=== PATIENT | female | born 1980 | race Hispanic/Latino ===

== ENCOUNTER 2025-02-14 19:47 | Emergency (ER) | payer SELFPAY ==
[2025-02-14 19:56] VITALS: BP 152/98
[2025-02-14 20:16] LABS: Hematocrit 37.6 % (37.0-47.0); Hemoglobin 12.8 g/dL (12.0-16.0); Mean Corp Hgb Conc. 34.0 g/dL (33.0-37.0); Mean Corpuscular Volume 91.5 fL (81.0-99.0); Nucleated Red Blood Cells % 0 %; Platelet Count 349 10^3/uL (130-400); Red Cell Dist. Width 13.4 % (11.5-14.5)
[2025-02-14 20:37] VITALS: BP 148/85
[2025-02-14 20:39] LABS: HCG, Serum Qualitative Screen Negative; Troponin I < 0.012 ng/ml
[2025-02-14 20:46] LABS: ALT (SGPT) 28 U/L (0-35); AST (SGOT) 37 U/L (14-36); Albumin 4.6 g/dl (3.5-5.0); Alkaline Phosphatase 107 U/L (38-126); Blood Urea Nitrogen 17 mg/dl (7-17); Calcium 9.4 mg/dl (8.4-10.2); Carbon Dioxide 27 mmol/L (22-30); Chloride 103 mmol/L (98-107); Glucose 113 mg/dl (70-99); Lipase 117 U/L (23-300); Potassium 3.3 mmol/L (3.5-5.1); Sodium 137 mmol/L (135-145); Total Protein 7.9 g/dl (6.3-8.2); eGFR > 60.00
[2025-02-14 21:00] VITALS: BP 154/91
--- NOTE | 2025-02-14 21:03 | ED.GENMED ---
History of Present Illness
General
Chief Complaint: Abdominal Pain
Source: patient
Exam Limitations: none
Time Seen by Provider: 02/14/25 20:23
Nursing documentation reviewed up to this point in time: agreed with
History of Present Illness
History of Present Illness:
Patient is a 44-year-old female with history of hypertension presents to the ER complaining of upper abdominal pain that radiates to her back starting today. She is nauseous but has not vomited. She reports 3 months ago she was seen at [facility] and told she needed her gallbladder removed. She currently does not have a family doctor. She did take Tylenol for pain which is not relieving her symptoms. All history obtained via language line
Past History
Past History
ED Past Medical History: None
ED Past Surgical History: Other (Breast)
Social History
Tobacco: Non-smoker
Alcohol: None
Drug: None
Personal: Single
Living: with family
Phy Exam
General Physical Exam
General Presentation: no apparent distress
General age: appears stated age
General Skin: warm and dry
General Habitus: normal
General Mental: alert
General Hydration: appears well hydrated
Cardiovascular Exam
Cardiovascular Exam: regular rate/rhythm, no murmur and normal peripheral pulses
Pulmonary Exam
Pulmonary Exam: lungs clear and no respiratory distress
Gastrointestinal Exam
Gastrointestinal Exam: soft and other (tender epigastric /ruq region )
Neurological Exam
Neurological Exam: alert and oriented x3
Musculoskeletal Exam
Musculoskeletal Exam: full ROM
Skin Exam
Skin Exam: normal color and warm/dry
Psychiatric Exam
Psychiatric Exam: normal mood/affect
Course
Orders/Labs/Results
Orders:
Orders
02/14/25 19:48
Electrocardiogram (*1) Stat
Reason for Study: Abdominal Pain
02/14/25 19:49
Test Result ONCE
02/14/25 20:06
Complete Blood Count/With Diff Urgent
Comprehensive Metabolic Panel Urgent
HCG, Serum Qualitative Screen Urgent
Comment: Notify provider if positive test present
Lipase Urgent
Troponin I Urgent
02/14/25 21:01
Ketorolac [Toradol] 15 mg IV NOW STA
02/14/25 21:02
0.9% Sodium Chloride 1000 ml [Nss] 1,000 ml IV BOLUS
US Abdomen Complete/Upper Urgent
Comment:
Reason For Exam: ruq pain
Abnormal Lab Results
02/14/25
20:06
RBC 4.11 L 10^6/uL
(4.20-5.40)
MCH 31.1 H pg
(27.0-31.0)
Absolute Lymphs (auto) 4.0 H 10^3/uL
(1.2-3.4)
Potassium 3.3 L mmol/L
(3.5-5.1)
Glucose 113 H mg/dl
(70-99)
AST 37 H U/L
(14-36)
02/14/25 20:06
02/14/25 20:06
Vital Signs
Initial and Last Documented VS:
Initial Vital Signs
Temp Pulse Resp BP Pulse Ox
98.6 F 100 18 152/98 100
02/14/25 19:56 02/14/25 19:56 02/14/25 19:56 02/14/25 19:56 02/14/25 19:56
Last Documented Vital Signs
Temp Pulse Resp BP Pulse Ox
98.6 F 89 18 146/95 97
02/14/25 19:56 02/14/25 23:30 02/14/25 23:30 02/14/25 23:00 02/14/25 23:30
MDM/Problems Addressed
Differential Diagnosis Includes:
Not limited to biliary colic pancreatitis
MDM/Problems Addressed:
Symptoms are likely biliary colic. Patient is afebrile however normal white count normal LFTs. Ultrasound pending at this time.
Patient denies pain presently is well-appearing ultrasound shows a contracted gallbladder gallstones but no findings to suggest acute cholecystitis. Patient was well up to go home with outpatient follow-up with surgery.
*Radiology
Radiology exam reviewed: radiology read reviewed
*Pulse Oximetry
SaO2: 100
Oxygen Mode of Delivery: Room air
Patient hypoxic: no
*Critical Care Note
Total Time (30-74mins, 75-104mins- exclusive of procedures): Not Applicable
ED Attending Note
-
Portions of this chart may have been created with voice recognition software.� Occasional wrong word or��sound alike� substitutions may have occurred due to the inherent limitations of voice recognition software.
Discharge Plan
Departure
Patient Disposition: Home (Routine Discharge)
Date of Disposition: 02/14/25
Time of Disposition: 23:22
Patient with high blood pressure during this ER visit?: Yes
Condition: Fair
Covid-19: Not Applicable
Discharge Problem:
Abdominal pain, Gallstones
Instructions: Gallstones (DC), Abdominal Pain
Prescriptions:
No Action
No Current Medications
0
Referrals:
pancho joseph [Other]
NONE,* [Family Provider, Internal Medicine]
Rosendo Joseph MD [Active, Surgical]
Activity Restrictions/Additional Instructions:
Llame al cirujano ma�omi para pedir tigre cuanto antes. Siga silvia dieta baja en grasas. Vuelva si empeoran los s�ntomas.
Interventions
Interventions:
*Risk Screen - Suicide Last Done: 02/14/25 20:05
*General Assessment Last Done: 02/14/25 20:22
*Neglect/Abuse Screening Last Done: 02/14/25 20:05
*ED- Fall Risk Assessment Last Done: 02/14/25 20:22
*ED COVID-19 Vaccine History Last Done: 02/14/25 20:22
*ED Influenza Vaccine History Last Done: 02/14/25 20:22
*Nursing Disposition Last Done: 02/14/25 23:35
YF-Gnzcqe-Gwykswqaja Assessment Last Done: 02/14/25 20:22
Discharge Date and Time
Discharge Date/Time: 02/14/25 23:35
Print Language: BELARUSIAN
[2025-02-14] MEDS: TORADOL 15 MG IV (21:14)
[2025-02-14] MEDS: NSS 1000 IV (21:14)
[2025-02-14 22:39] VITALS: BP 147/94
[2025-02-14 23:00] VITALS: BP 146/95
== END 2025-02-14 23:35 | disposition home or self-care (01) ==
LOC: EMR 19:47
PROVIDERS: Emergency Medicine; EMERGENCY PHYSICIAN Emergency Medicine
DX: K80.20 Calculus of gallbladder without cholecystitis without obstruction (principal); R10.10 Upper abdominal pain, unspecified; I10 Essential (primary) hypertension
CPT/HCPCS: 96374; 96361; 99284; 76700; 80053; 83690; 84484; 84703; 85025; 93005